=== PATIENT | male | born 1990 | race Caucasian/White ===

== ENCOUNTER → 2016-04-14 | Outpatient (REF) ==
[~2016-04-14] MED LIST: LAMICTAL200 MG PO; TRILEPTAL600 MG PO; VIMPAT200 MG PO
== END ==
LOC: ZLAB.WCH 11:22
DX: Z01.89 Encounter for other specified special examinations (principal)

== ENCOUNTER → 2017-10-18 | Outpatient (CLI) | payer OTHER ==
[2017-10-18 09:49] LABS: BASO % 1.1 % (0.0-2.0); EOS # 0.1 (0.0-0.7); EOS % 3.9 % (0-4.0); GRAN # 2.2 (1.4-6.5); GRAN % 61.9 % (42.2-75.2); HEMATOCRIT 44.3 % (42.0-52.0); HEMOGLOBIN 15.1 g/dl (13.5-18.0); LYMPH # 0.9 (1.2-3.4); LYMPH % 23.9 % (20.0-51.0); MEAN CELL VOLUME 94 fl (80.0-100.0); MEAN CORPUSCULAR HEMOGLOBIN 32 pg (27.0-31.0); MEAN CORPUSCULAR HGB CONC 34 g/dl (33.0-37.0); MEAN PLATELET VOLUME 9.6 fl (7.4-10.4); MONO # 0.3 (0.1-0.6); MONO % 8.9 % (1.7-9.3); PLATELET COUNT 229 K/mm3 (130-400)
[2017-10-18 09:52] LABS: MUCOUS Present /lpf; PH 5 (5-8); SQUAMOUS EPITHELIAL None Seen /hpf; URINE APPEARANCE Clear; URINE BACTERIA None Seen /hpf; URINE BILIRUBIN Negative (NEGATIVE); URINE BLOOD Negative (NEGATIVE); URINE COLOR Yellow; URINE GLUCOSE Negative (NEGATIVE); URINE KETONE 1+ (NEGATIVE); URINE LEUKOCYTE ESTERASE Negative (NEGATIVE); URINE NITRATE Negative (NEGATIVE); URINE PROTEIN(semi-quant) Negative (NEGATIVE); URINE RBC 0-2 /hpf
[2017-10-18 10:00] LABS: COLLECTION METHOD CLEAN CATCH
[2017-10-18 10:01] LABS: ALBUMIN 4.3 gm/dL (3.5-5.0); BILIRUBIN,TOTAL 0.3 mg/dL (0.0-1.0); CALCIUM 8.9 mg/dL (8.4-10.2); CHOLESTEROL RISK RATIO 5.2; CREATININE, serum 0.93 mg/dL (0.66-1.25); POTASSIUM 4.3 mmol/L (3.4-5.0); TOTAL PROTEIN 7.5 gm/dL (6.4-8.2)
== END ==
LOC: COL.LAB 09:10
DX: G40.119 Localization-related (focal) (partial) symptomatic epilepsy and epileptic syndromes with simple partial seizures, intractable, without status epilepticus (principal); Z78.9 Other specified health status

== ENCOUNTER → 2019-10-19 | Outpatient (CLI) | payer OTHER | LOC: COL.RAD 10:54 | DX: S83.212A Bucket-handle tear of medial meniscus, current injury, left knee, initial encounter (principal); S83.412A Sprain of medial collateral ligament of left knee, initial encounter ==

== ENCOUNTER 2019-11-06 07:23 | Day surgery (SDC) | payer OTHER ==
[~2019-11-06] VITALS: Ht 175.3 cm; Wt 79.6 kg
[2019-11-06 08:00] VITALS: BP 112/52; PULSE 45; TEMP 97.6
[2019-11-06] MEDS ORDERED: KEPPRA 500MG500 MG PO (08:17)
[2019-11-06] MEDS ORDERED: FISH OIL 1000MG1 CAP PO (08:20)
[2019-11-06] MEDS ORDERED: PERCOCET 325 MG1 TA2 PO (08:21)
[2019-11-06] MEDS ORDERED: ASPIRIN 32325 MG/TAB PO (08:23)
[2019-11-06] MEDS ORDERED: COLACE 100100 MG/CAP PO (08:24)
[2019-11-06] MEDS ORDERED: MOBIC15 MG PO (08:25)
[2019-11-06] MEDS ORDERED: ZOFRAN 4MG T4 MG/TAB PO (08:27)
[2019-11-06 10:05] VITALS: BP 120/62; PULSE 55; TEMP 97.3
--- NOTE | 2019-11-06 10:05 | NUR ---
TO RM 6 PER CART FROM PACU. MOVMENTS JERKY. SPEECH JERKY, BUT ALERT ORIENTED X3. C/O PAIN 1-04/09. DRESSING CLEAN DRY INTACT WITH LASHAE WRAP. ICE OVER KNEE AND LEFT LEG ELEVATED.
[2019-11-06 10:20] VITALS: BP 103/64; PULSE 50
--- NOTE | 2019-11-06 10:20 | NUR ---
JERKYNESS HAS DECREASED AND SPEECH IS MORE CLEAR. MATY PAN OPERATOR INTO SEE PATIENT TO EVALUATE. RECEIVED WATER AND TAKING SMALL SIPS. TOLERATING WATER WELL.
--- NOTE | 2019-11-06 10:30 | NUR ---
DR DAVID CALLED CONCERNING PATIENTS PRESCRIPTION OF PERCOCET. OK TO PROCEED WITH PRESCRIPTION OF PERCOCET.
[2019-11-06 10:35] VITALS: BP 105/58; PULSE 41
--- NOTE | 2019-11-06 10:35 | NUR ---
JERKY MOVEMENTS ARE SMALLER MORE SPORADICALLY. RECEIVED APPLE SAUCE.
[2019-11-06 10:50] VITALS: BP 99/57; PULSE 41
--- NOTE | 2019-11-06 10:50 | NUR ---
PATIENT RESTING QUIETLY. NO JERKY OR TWITCHING NOTED. STATED THEY ARE FAR FEW IN BETWEEN.
[2019-11-06 11:20] VITALS: BP 102/53; PULSE 43
--- NOTE | 2019-11-06 11:20 | NUR ---
AMBULATED TO BATHROOM WITH ASSIST USING CRUTCHES. DISCONTINUED IV AND INT- CATHETER INTACT.
--- NOTE | 2019-11-06 11:30 | NUR ---
RECEIVED DISCHARGE INSTRUCTIONS AND VERBALIZED UNDERSTANDING. PATIENT GETTING DRESSED.
--- NOTE | 2019-11-06 11:45 | NUR ---
DISCHARGED PER WC BY NURSING STAFF TO PRIVATE CAR IN CARE OF .
== END 2019-11-06 12:13 | disposition home or self-care (01) ==
LOC: SDCO 07:23
DX: M23.232 Derangement of other medial meniscus due to old tear or injury, left knee (principal); M65.862 Other synovitis and tenosynovitis, left lower leg; G40.909 Epilepsy, unspecified, not intractable, without status epilepticus; E78.00 Pure hypercholesterolemia, unspecified; Z79.899 Other long term (current) drug therapy; Z96.82 Presence of neurostimulator
CPT/HCPCS: J0690; J1100; J1170; J1885; J2405; J2704; J3010; J7120